=== PATIENT | female | born 2000 | race African-American/Black ===

== ENCOUNTER 2023-02-22 23:07 | Emergency (ER) | payer SELFPAY ==
[~2023-02-22] VITALS: Ht 170.2 cm; Wt 109.0 kg
[2023-02-22 23:13] VITALS: O2SAT 100
[2023-02-23 01:05] LABS: BASOPHILS % 0.6 % (0.0-2.0); EOSINOPHILS % 0.4 % (0.0-5.0); HEMATOCRIT. 38.5 % (36.0-48.0); LYMPHOCYTES % 25.5 % (20.0-50.0); MEAN CORPUSCULAR HEMOGLOBIN 31.7 pg (28.0-32.0); MEAN CORPUSCULAR VOLUME 93.6 fL (81.0-99.0); MEAN PLATELET VOLUME 7.2 fl (7.4-10.4); MONOCYTES % 5.6 % (2.0-8.0); NEUTROPHILS % 67.9 % (40.0-76.0); PLATELET 331 x1000/uL (130-400); RED BLOOD CELL COUNT 4.11 mill/uL (4.2-5.4); RED CELL DISTRIBUTION WIDTH 13.6 % (11.6-14.6)
[2023-02-23 01:22] LABS: CHLORIDE 110 mEq/L (98-107)
[2023-02-23 01:30] LABS: HCG SCREEN NEGATIVE
[2023-02-23 02:05] VITALS: BP 132/68; PULSE 70; RESP 18; TEMP 98.6
[2023-02-23 02:08] LABS: ETHANOL BLOOD < 10 mg/dL (-10)
== END 2023-02-23 02:15 | disposition home or self-care (01) ==
LOC: ER 23:19
DX: B34.9 Viral infection, unspecified (principal); M79.10 Myalgia, unspecified site; Z20.822 Contact with and (suspected) exposure to COVID-19
CPT/HCPCS: 81025; 99284; 80053; 80307; 80329; 80320; 84703; 85025; 87804 ×2; 36415; 71045; 87426; C9803; G0480

== ENCOUNTER 2023-03-26 23:13 | Emergency (ER) | payer SELFPAY ==
[~2023-03-26] VITALS: Ht 165.1 cm; Wt 96.0 kg
[2023-03-26 23:36] VITALS: BP 115/75; PULSE 83; RESP 18; TEMP 99; O2SAT 97
== END 2023-03-27 00:50 | disposition left against medical advice (07) ==
LOC: ER 23:13
DX: Z53.21 Procedure and treatment not carried out due to patient leaving prior to being seen by health care provider (principal)
CPT/HCPCS: 99281